=== PATIENT | male | born 1955 | race Caucasian/White ===

== ENCOUNTER → 2023-05-04 | Emergency (ER) | payer OTHER ==
[~2023-05-04] VITALS: Ht 165.1 cm; Wt 68.0 kg
[~2023-05-04] MED LIST: BUPROPION XL150 MG; CLONAZEPAM0.5 MG; COZAAR50 MG; ESTAZOLAM2 MG; HORIZANT300 MG; METFORMIN HCL1000 M2; SERTRALINE20 MG/1 ML; TRAZODONE HCL50 MG
[2023-05-04 16:47] LABS: HEMATOCRIT 32.5 % (39.0-48.0); HEMOGLOBIN 11.3 g/dL (13-16.00); MEAN CORPUSCULAR HEMOGLOBIN 29.1 pg (27.00-32.0); MEAN CORPUSCULAR HGB CONC 34.7 g/dl (32.0-36.0); PLATELET COUNT 693 K/uL (150-450); RED BLOOD COUNT 3.87 M/uL (4.00-6.00); RED CELL DISTRIBUTION WIDTH 13.8 % (11.5-14.5)
[2023-05-04 17:24] LABS: ALBUMIN 3.1 gm/dL (3.4-5.0); BILIRUBIN TOTAL 0.46 mg/dL (0.3-1.2); CREATININE SERUM 1.55 mg/dL (0.70-1.30); GFR 44.95; GLOBULINA 3.8 G/DL (2.4-3.5); POTASSIUM 3.69 mEq/L (3.5-5.1); TOTAL PROTEIN 6.9 gm/dL (6.4-8.2)
== END | disposition left against medical advice (07) ==
LOC: ER 14:23
PROVIDERS: General Practice
DX: R19.7 Diarrhea, unspecified (principal); E11.9 Type 2 diabetes mellitus without complications; Z79.84 Long term (current) use of oral hypoglycemic drugs; I10 Essential (primary) hypertension